=== PATIENT | female | born 1935 | race Caucasian/White ===

== ENCOUNTER 2020-11-06 16:56 | Inpatient (IN) | payer MEDICARE, BC ==
[~2020-11-06] VITALS: Ht 160 cm; Wt 57.8 kg
[2020-11-06 17:48] VITALS: BP 108/47
--- NOTE | 2020-11-06 18:54 | NUR ---
Rec'd patient via life net from [facility] to room 1127. She is A/O times one to person. She is calm, coorperative, and very pleasant. She was transferred from [facility] where she had been admitted from [place] to hospital for behaviors of aggression, combative behavior, and for a past HX of Dementia. She was admitted to [facility] for UIT and was treated with ABT. She is IDDM and per report from hospital she had a blood glucose level of 117 when she left the hospital. She also was reported as being occ incontient of bowel but more freq. of urine. She has a round blue bruise in her left AC and 3 red areas on her left hip. She denies pain or s/sx of UTI. She will be placed on droplet isolation and Covid testing will be completed. She does not demonstrate any s/sx of positive to Covid. She was oriented to room and hospital, fed a sandwich, and due to fall precautions an pressure alarm was placed on her bed.
[2020-11-06] MEDS ORDERED: VITAMIN B-121000 MCG PO (19:16)
[2020-11-06] MEDS ORDERED: DONEPEZIL HCL10 MG PO (19:16)
[2020-11-06] MEDS ORDERED: FERROUS SULFAT325 MG PO ×2 (19:17)
[2020-11-06] MEDS ORDERED: LEVOXYL75 MCG PO (19:18)
[2020-11-06] MEDS ORDERED: IPRATROPIUM BRO30 M1 NASAL (19:18)
[2020-11-06] MEDS ORDERED: MAG-OXIDE400 MG PO (19:19)
[2020-11-06] MEDS ORDERED: PRINIVIL20 MG PO (19:19)
[2020-11-06] MEDS ORDERED: NAMENDA10 MG PO (19:20)
[2020-11-06] MEDS ORDERED: ACETAMINOPHEN325 MG PO (19:20)
[2020-11-06] MEDS ORDERED: BAYER CHEWABLE81 MG PO (19:21)
[2020-11-06] MEDS ORDERED: LIPITOR80 MG PO (19:21)
[2020-11-06] MEDS ORDERED: AUGMENTIN 875-11 TAB PO (19:21)
[2020-11-06] MEDS ORDERED: CALTRATE+D3 PL1 EACH PO (19:22)
[2020-11-06 19:23] LABS: BILIRUBIN NEGATIVE (NEGATIVE); KETONE NEGATIVE (NEGATIVE); NITRITE NEGATIVE (NEGATIVE); UROBILINOGEN NORMAL mg/dL (< 2)
[2020-11-06] MEDS ORDERED: PLAVIX75 MG PO (19:23)
[2020-11-06] MEDS ORDERED: CENTRUM COMPLE1 EACH PO (19:23)
[2020-11-06] MEDS ORDERED: GLUCOPHAGE1000 MG PO (19:24)
[2020-11-06] MEDS ORDERED: GLUCOPHAGE500 MG PO (19:26)
[2020-11-06] MEDS ORDERED: ZOLOFT50 MG PO (19:26)
[2020-11-06] MEDS ORDERED: HEALTHYLAX17 GM PO (19:26)
--- NOTE | 2020-11-06 19:36 | NUR ---
RECEIVED IN HALLWAY, STANDING AT NURSES STATION. STATES SHE WANTS TO GO BACK WHERE SHE CAME FROM. EDUCATED HER THAT SHE IS HERE FOR AGGRESSION AND CONFUSION AND SHE WILL SEE THE DOCTOR IN THE MORNING. SHE STATED, OK, AND WENT BACK TO HER ROOM. NO SIGNS OF AGGRESSION AT THIS TIME. REDIRECT AND REORIENT NEEDED. IN ROOM WITH NURSE AT THIS TIME. CONTINUE PLAN OF CARE.
[2020-11-06 21:02] VITALS: BP 126/56
[2020-11-07 07:19] LABS: BASOPHILS 0.3 % (0-2); EOSINOPHILS 1.9 % (0-7); HEMATOCRIT 34.2 % (36.0-48.0); HEMOGLOBIN 10.9 g/dL (12-16); IMMATURE GRANULOCYTES 0.3 % (0-5); LYMPHOCYTE ABS# 1.63 10x3/uL (1.18-3.74); LYMPHOCYTES 27.6 % (15-50); MCH 29.6 pg (26.0-34.0); MCHC 31.9 g/dL (31.0-37.0); MCV 92.9 fL (80.0-100.0); MEAN PLATELET VOLUME 9.6 fL (7.4-10.4); MONOCYTES 9.5 % (2-11); NEUTROPHIL ABS# 3.56 10x3/uL (1.56-6.13); NEUTROPHILS 60.4 % (40-80); PLATELET COUNT 272 10x3/uL (130-400); RBC 3.68 10x6/uL (4.00-5.40); RDW 12.2 % (11.5-14.5); WBC 5.9 10x3/uL (4.8-10.8)
--- NOTE | 2020-11-07 07:57 | NUR ---
REC'D PT IN ROOM. PT UELLING, CUSSING, ATTEMPTING TO BITE STAFF, AND SPIT AT STAFF. UNABLE TO REDIRECT AT THIS TIME. HALDOL 2MG IM AND ATIVAN 0.5MG IM GIVEN PER PRN ORDER. WILL CPOC.
[2020-11-07 08:00] VITALS: BP 120/68
[2020-11-07 08:16] LABS: ALBUMIN 3.5 g/dL (3.4-5.0); ANION GAP 9.8 mmol/L (8-16); BILIRUBIN - TOTAL 0.21 mg/dL (0.2-1.3); CALCIUM 9.1 mg/dL (8.5-10.1); CARBON DIOXIDE 29.4 mmol/L (21.0-32.0); CHOL - HDL RATIO 2.8 ratio (2.3-4.1); CREATININE - SERUM 1.1 mg/dL (0.6-1.3); LDL-HDL RATIO 1.2 ratio (1.5-3.5); POTASSIUM - SERUM 4.2 mmol/L (3.5-5.1); PROTEIN - SERUM 6.9 g/dL (6.4-8.2); THYROID STIMULATING HORMONE 0.16 uIU/mL (0.36-3.74)
[2020-11-07 12:47] VITALS: Ht 160 cm; Wt 57.8 kg
--- NOTE | 2020-11-07 19:43 | NUR ---
RECEIVED IN HALLWAY. SITTING OUTSIDE OF NURSES STATION SOCIALIZING WITH PEERS. CALM AND COOPERATIVE WITH CARE AND ASSESSMENT. NO SIGNS OF AGGRESSION. NO STSTEMENTS OF SELF HARM VOICED. CONFUSED. REDIRECT AND REORIENT NEEDED. CONTINUES TO SOCAILIZE WITH PEERS. CONTINUE PLAN OF CARE.
--- NOTE | 2020-11-07 19:46 | NUR ---
RECEIVED IN BEDROOM. RESTING IN BED WITH EYES CLOSED. RESPONDS TO VOICE. STATES SHE IS VERY TIRED. CALM AND COOPERATIVE WITH CARE AND ASSESSMENT. NO SIGNS OF AGGRESSION. NO STATEMENTS OF SELF HARM VOICED. REDIRECT AND REORIENT NEEDED. CONTINUES TO REST QUIETLY IN BED. CONTINUE PLAN OF CARE.
[2020-11-07 22:19] VITALS: BP 121/51
[2020-11-08 08:00] VITALS: BP 140/54
--- NOTE | 2020-11-08 08:22 | NUR ---
Nutrition Follow-up: Poor PO intake yesterday. No ht or wt in chart. Diet: Diabetic PO intake: 0% x 3 yesterday Labs noted (11/07): Glu 137, POC Glu 203, A1C 6.3 Meds noted: Glucophage, Miralax, MagOx, vit B12, Oscal D -Encourage PO intake and honor food preferences within diet restrictions. -+Glucerna with meals. -Need ht & wt when possible. -RD will follow up within 3 days.
--- NOTE | 2020-11-08 08:30 | NUR ---
RECEIVED IN PATIENT ROOM. CALM AND COOPERATIVE WITH CARE AND ASSESSMENT. INSISTS SHE IS NOT A PATIENT AND IS HERE VISITING HER . RUDE TO STAFF. DEMANDING TO LEAVE. REDIRECT AND REORIENT NEEDED. EATING BREAKFAST AT THIS TIME. CONTINUE PLAN OF CARE.
--- NOTE | 2020-11-08 15:12 | PSY ---
PATIENT NAME:HARSH LOZOYA MEDICAL RECORD: [id number] : 34 LOCATION:[facility] ADMISSION DATE: 11/06/20 ACCOUNT: [id number] PSYCHIATRIC EVALUATION DATE OF EVALUATION: 11/07/20 IDENTIFYING DATA: The patient is 85 years old and she is referred to us by a local senior care. CHIEF COMPLAINT: Aggression. HISTORY OF PRESENT ILLNESS: The patient lives in a senior care. I am not sure how long she has been there. She is very confused and is not able to provide much of anything in the way of useful information. Apparently, she has been aggressive at the senior care. She has been angry and could easily become aggressive here if it were not for the fact that she is being constantly redirected. She is clearly impaired. She says she does not want to hurt herself or anyone else, but she is only oriented to person. PAST MEDICAL HISTORY: Significant for diabetes, hypertension, hypothyroidism and anemia. PAST PSYCHIATRIC HISTORY: Significant for dementing illness, although the details about the diagnosis and treatment up to this point are unknown. FAMILY HISTORY: Unknown. ALLERGIES: SULFA. MEDICATIONS: Include amoxicillin, Aricept, Namenda, metformin, Synthroid, Plavix, iron, lisinopril, aspirin, Zoloft and Glucophage. SOCIAL HISTORY: The patient is unmarried. I received a ambiguous answer when I asked if she had been or was never . She does not have any children, but apparently she has a nephew that she keeps referring to, although at this point I have not spoken to him or obtained information from him. She denies a history of sexual trauma or abuse, but again the patient is an extremely unreliable historian and there are limited sources of information today. MENTAL STATUS EXAMINATION: The patient is awake, alert and oriented to person, but not to place, time or situation. Her mood is angry. Her affect is constricted. Thought processes are circumstantial and her memory, concentration and abstraction abilities are severely impaired. She denies that she would seek to harm herself or others as well as psychotic symptoms. 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 AXIS II: None. AXIS III: Hypertension, diabetes, hypothyroidism. AXIS IV: Moderate stressors. AXIS V: Global assessment of functioning is 30. PLAN: At this time, the patient is admitted to the hospital secondary to aggressive behavior associated with a dementing illness. She will be treated with both mood stabilizing and memory enhancing medications as deemed appropriate. It is clear she is going to require 24-hour a day supervision and I presume the senior care is the least restrictive environment that can meet those needs. TRANSINT:[id number] Voice Confirmation ID: [id number] DOCUMENT ID: [id number] BRITTON MOHAMUD MD at 1512 CC: [id number] DICTATION DATE: 11/07/20 1627 CLINICAL DATA MANAGER: 11/07/20 1652 ADM IN [place] [id number] [place] [id number]
--- NOTE | 2020-11-08 19:21 | NUR ---
RECEIVED IN BEDROOM. RESTING WITH EYES CLOSED. RESPONDS TO VOICE. CALM AND COOPERATIVE WITH CARE AND ASSESSMENT. NO SIGNS OF AGGRESSION. REDIRECT AND REORIENT NEEDED. CONTINUES TO REST QUIETLY IN BED. CONTINUE PLAN OF CARE.
[2020-11-08 19:30] VITALS: BP 132/42
--- NOTE | 2020-11-09 08:45 | NUR ---
RECEIVED IN PATIENT ROOM. SITTING ON SIDE OF BED. CALM AND COOPERATIVE WITH CARE AND ASSESSMENT. NO AGGRESSION THIS MORNING. REDIRECT AND REORIENT NEEDED. EATING BREAKFAST AT THIS TIME. CONTINUE PLAN OF CARE.
[2020-11-09 09:19] VITALS: BP 134/66
--- NOTE | 2020-11-09 13:46 | PN ---
PATIENT:HARSH LOZOYA MEDICAL RECORD: [id number] LOCATION:[facility] ADMISSION DATE: 11/06/20 PROGRESS NOTE DATE OF SERVICE: 11/08/2020 SUBJECTIVE: The patient's case was discussed with staff. OBJECTIVE: The patient slept reasonably well last night, but did not eat well at all. She has very limited insight about her situation and is only oriented to person. ASSESSMENT: Dementia. PLAN: I am going to start the patient on Megace to assist with appetite stimulation. She will be monitored for clinical changes associated with its use. TRANSINT:[id number] Voice Confirmation ID: [id number] DOCUMENT ID: [id number] BRITTON MOHAMUD MD at 1346 CC: [id number] DICTATION DATE: 11/08/20 1551 WATERPROOF MATERIAL FOLDER: 11/08/20 2212 ADM IN [facility] [address] [place] [id number]
[2020-11-09 21:30] VITALS: BP 126/49
--- NOTE | 2020-11-09 22:17 | NUR ---
PT IS ALERT AND ORIENTED TO SELF ONLY. CALM AND COOPERATIVE WITH STAFF DURING ASSESSMENT. COMPLIANT WITH ALL MEDICATIONS. PATIENT IS STILL IN DROPLET ISOLATION UNTIL HER COVID RESULTS COMES BACK. USES A CALL MONDRAGON FOR ASSISTANCE. ABLE TO AMBULATE ON HER OWN. MONITOR FOR SAFETY.
[2020-11-10 08:00] VITALS: BP 158/54
[2020-11-10 08:12] LABS: RAPID PLASMA REAGIN Non Reactive (Non Reactive)
--- NOTE | 2020-11-10 10:58 | PN ---
PATIENT:HARSH LOZOYA MEDICAL RECORD: [id number] LOCATION:[facility] ADMISSION DATE: 11/06/20 PROGRESS NOTE DATE OF SERVICE: 11/09/2020 SUBJECTIVE: The patient's case was discussed with staff. She has no new complaint. OBJECTIVE: The patient is in good behavioral control. She has poor insight about her situation. ASSESSMENT: Dementia. PLAN: Current medicines have been reviewed and will be maintained. Long-term prognosis is guarded. TRANSINT:[id number] Voice Confirmation ID: [id number] DOCUMENT ID: [id number] BRITTON MOHAMUD MD at 1058 CC: [id number] DICTATION DATE: 11/09/20 1524 PARTS PICKER: 11/09/20 1528 ADM IN [place] [id number] [place] [address]
--- NOTE | 2020-11-10 11:48 | NUR ---
PT FOUND ON FLOOR IN ROOM. PT UNABLE TO STATE IF FELL OR NOT. ALARM WAS ON BUT DID NOT SOUND. VSS. FAMILY, DOCTOR, AND TRANSPORTATION DEPARTMENT HEAD NOTIFIED OF FALL. ALARM CHANGED OUT. NOTED BRUISE TO RIGHT WRIST. PT HAS FULL RANGE OF MOTION OF WRIST AND DOESN'T COMPLAIN OF PAIN. SMALL CUT NOTED TO RIGHT PENTECOSTALISM FROM HER GLASSES. FALL PRECAUTIONS IN PLACE.
[2020-11-10 11:51] VITALS: BP 130/51
--- NOTE | 2020-11-10 12:26 | NUR ---
PT IS ANXIOUS AND VERY CONFUSED. REDIRCTED NEEDED. NO AGGRESSION NOTED. MEDICATIONS GIVEN ORDERED. WALKER IN ROOM FOR AMBULATION. PT IS A PUI DUE TO AWAITING COVID TESTING RESULTS. DROPLET PRECAUTIONS IN PLACE. WILL CONTINUE TO MONITOR AND CONTINUE WITH PLAN OF CARE.
--- NOTE | 2020-11-10 15:33 | NUR ---
Rec'd this am lying supine in bed. She is A/O times one to person. She has a lot of confusion. She is very quiet and cooperative. She has not demonstrated any signs of aggressive behavior towards this murse. At approx. 1100 am she was found on the floor at the bedside. Injuries were minor treatable. Patient denied discomfort and refusal of pain meds. Attempted to call a [phone] in her file but there was no answer. I ask the patient if she knew any of her families # and she said "no".
[2020-11-10 20:07] VITALS: BP 137/42
--- NOTE | 2020-11-10 21:24 | NUR ---
PT IS ALERT AND ORIENTED TO SELF AND AT TIMES SITUATION. SHE CAN RECALL CERTAIN THINGS THAT OCCURRED TODAY. RECEIVED IN HER ROOM IN BED. CALM AND COOPERATIVE WITH STAFF. COMPLIANT WITH ALL MEDICATIONS. EASY TO REDIRECT. ENCOURAGED TO INFORM STAFF WHEN SHE NEEDS TO GET UP WE DONT WANT HER TO FALL. USES A WALKER TO ASSIST WITH AMBULATION. MONITOR FOR SAFETY.
--- NOTE | 2020-11-11 08:52 | NUR ---
Nutrition Reassessment/Follow-up: Overall poor PO intake. Ate 30-50% of meals yesterday. Noted Megace started 11/09. Ht & wt now available Diet: Diabetic, Glucerna TID PO intake: 42% x 9 meals Wt: 121#; Ht: 5'3"; BMI: 21.4 Last BM: 11/11 Labs noted: POC Glu 132 (11/10) Meds noted: Megace, Glucophage, MagOx, vit B12, Oscal D, Miralax Est needs: 5125-6531 kcal/day (25-30 kcal/kg) 45-55 g protein/day (0.8-1 g/kg) 6556-4567 mL H2O/day (1 mL/kcal) -Encourage PO intake and honor food preferences within diet restrictions. -Monitor wt. -RD will follow up within 3-5 days.
--- NOTE | 2020-11-11 15:28 | NUR ---
Rec'd patient this am lying in bed. She is A/O times 1 to person. She is a fall risk and is reeducated about fall risk precautions daily. Fall precautions in place. A bruise is located on RT wrist approx. 4 inches in lenght and a small cut approx 1 inch in lenght above her eye. She is compliant with her meds. Rec's a phone call at approx. 130 from a Peter FARRAR at [phone] phone # who says he has POA and he just found out that she is a patient here but he is ok if she needs to be here. He will make plans to talk with Víctor in Social and see what if anything he needs to do. He states he lives in [facility]. She is not willing or able to do much education at this date/time but staff will attempt to educate at every oppotunity .
--- NOTE | 2020-11-11 17:20 | NUR ---
MHT reports to nurse and Dr. Soriano present that patient had dark black stools today. Order rec'd for a CBC and stool occult blood.
[2020-11-11 18:46] LABS: BASOPHILS 0.2 % (0-2); EOSINOPHILS 2.6 % (0-7); HEMATOCRIT 30.8 % (36.0-48.0); HEMOGLOBIN 9.9 g/dL (12-16); IMMATURE GRANULOCYTES 0.2 % (0-5); LYMPHOCYTE ABS# 2.71 10x3/uL (1.18-3.74); LYMPHOCYTES 33.3 % (15-50); MCH 30.3 pg (26.0-34.0); MCHC 32.1 g/dL (31.0-37.0); MCV 94.2 fL (80.0-100.0); MEAN PLATELET VOLUME 9.2 fL (7.4-10.4); MONOCYTES 9.8 % (2-11); NEUTROPHIL ABS# 4.38 10x3/uL (1.56-6.13); NEUTROPHILS 53.9 % (40-80); PLATELET COUNT 227 10x3/uL (130-400); RBC 3.27 10x6/uL (4.00-5.40); RDW 12.5 % (11.5-14.5); WBC 8.1 10x3/uL (4.8-10.8)
[2020-11-11 20:00] VITALS: BP 140/45
--- NOTE | 2020-11-11 22:13 | NUR ---
BLOOD SUGAR 130
[2020-11-12 08:00] VITALS: BP 128/65
--- NOTE | 2020-11-12 10:18 | NUR ---
Spoke to lab personnel and asked this patient's send off is back and she said "The send off says she is negative." The patient is now off of PUI as she has been in her room since her admit last week. Let the patient know she is off of isolation and that she can come out of her room and speak to her nephew this evening. Provide prescribed meds. The patient is compliant with meds, she did however, decline her flonase. She has not shown any aggression today. Provide prescribed meds. Continue POC.
--- NOTE | 2020-11-12 15:43 | NUR ---
The patient awakened and she was very confused, she defacated on herself and she would not let the MHT clean her up until she spoke to the nurse. She wanted to know why she is here. Explained to her about having a UTI and being tested for COVID and that the UTI caused her to behave differently and that is why she is here. She got a little demading and said "Well, get me out of here now." Explained that I did not have the authority, only the DrTanner can release her. She said "Well, get him up here now." Explained to her that the DrTanner will be here tomorrow. She said "Well, good he is going to get an earfull. Continue to monitor her mood and behavior.
[2020-11-12 20:00] VITALS: BP 122/45
--- NOTE | 2020-11-12 22:44 | NUR ---
RECEIVED PATIENT IN HER ROOM, SHE IS PLEASANT. SHE TOOK HER MEDS WITHOUT ANY DIFFICULTY. SHE CAN MAKE HER NEEDS AND CONCERNS KNOWN. NO AGGRESSIVENESS NOTED. WILL FOLLOW POC
[2020-11-13 12:21] VITALS: BP 157/52
--- NOTE | 2020-11-13 17:14 | NUR ---
RECEIVED IN PATIENT ROOM. RESTING IN BED WITH EYES OPEN. CALM AND COOPERATIVE WITH CARE AND ASSESSMENT. NO AGGRESSIVE BEHAVIOR. REFUSED SHOWER TODAY. REDIRECT AND REORIENT NEEDED. WAITING FOR DINNER TRAY TO ARRIVE AT THIS TIME. CONTINUE PLAN OF CARE.
--- NOTE | 2020-11-13 20:09 | NUR ---
RECEIVED IN BEDROOM. RESTING IN BED WITH EYES OPEN. BRUISING TO RIGHT WRIST AND STATE PAIN WHEN TOUCHED. CALM AND COOPERATIVE WITH CARE AND ASSESSMENT. NO SIGNS OF AGGRESSION. REDIRECT AND REORIENT NEEDED. CONTINUES TO REST QUIETLY IN BED. CONTINUE PLAN OF CARE.
[2020-11-13 20:47] VITALS: BP 118/43
[2020-11-14 08:16] VITALS: BP 132/85
--- NOTE | 2020-11-14 10:01 | NUR ---
Nutrition Follow-up: Diet: Diabetic + Glucerna TID PO intake: ~42% average x last 9 meals Last BM: 11/14/20. Wt: 123.2# (11/13/20); Admit Wt: 121# (11/10/20) Meds noted: megace, metformin, miralax, magox, ferrrous sulfate, augmentin Labs noted: POC Glu 177(H) Recommend: -Continue current diet and oral nutrition supplement. -Encourage PO intake and continue to honor food preferences within diet restrictions. -Recommend continue appetite stimulant as feasible -RD will follow-up 11/16/20.
--- NOTE | 2020-11-14 15:12 | PN ---
PATIENT:HARSH LOZOYA MEDICAL RECORD: [id number] LOCATION:[facility] ADMISSION DATE: 11/06/20 PROGRESS NOTE DATE OF SERVICE: 11/10/2020 SUBJECTIVE: The patient's case was discussed with staff. She has no new complaint. OBJECTIVE: The patient is eating adequately and sleeping well. She has not been aggressive and is only oriented to person. ASSESSMENT: Dementia. PLAN: Her medications have been reviewed and will be maintained. TRANSINT:[id number] Voice Confirmation ID: [id number] DOCUMENT ID: [id number] BRITTON MOHAMUD MD at 1512 CC: [id number] DICTATION DATE: 11/10/20 1633 WOOD DOWEL MACHINE OPERATOR: 11/10/20 1654 ADM IN [place] [id number] [place] [address]
--- NOTE | 2020-11-14 17:25 | NUR ---
RECEIVED IN PATIENT ROOM. RESTING IN BED WITH EYES OPEN. CALM AND COOPERATIVE WITH CARE AND ASSESSMENT. NO AGGRESSIVE BEHAVIOR TODAY. REDIRECT AND REORIENT NEEDED. EATING DINNER AT THIS TIME. CONTINUE PLAN OF CARE.
--- NOTE | 2020-11-14 19:42 | NUR ---
RECEIVED IN BEDROOM. RESTING QUIETLY WITH EYES OPEN. CALM AND COOPERATIVE WITH CARE AND ASSESSMENT. NO SIGNS OF AGGRESSION. REDIRECT AND REORIENT NEEDED. CONTINUES TO REST QUIETLY IN BEDROOM. CONTINUE PLAN OF CARE.
[2020-11-14 20:17] VITALS: BP 112/42
[2020-11-15 08:00] VITALS: BP 134/44
[2020-11-15 08:15] LABS: HEMATOCRIT 31.8 % (36.0-48.0)
--- NOTE | 2020-11-15 14:08 | PN ---
PATIENT:HARSH LOZOYA MEDICAL RECORD: [id number] LOCATION:[facility] ADMISSION DATE: 11/06/20 PROGRESS NOTE DATE OF SERVICE: 11/14/2020 SUBJECTIVE: The patient's case was discussed with staff. She has no new complaint. OBJECTIVE: The patient is in good behavioral control. She has not been significantly disruptive, but she is only oriented to person. ASSESSMENT: Dementia. PLAN: Current medicines have been reviewed. I am going to continue her on current medicines for today. In addition to what she is taking now, she will be monitored for clinical changes associated with the antidepressant and hopefully she can be returned to the long-term soon. TRANSINT:[id number] Voice Confirmation ID: [id number] DOCUMENT ID: [id number] BRITTON MOHAMUD MD at 1408 CC: [id number] DICTATION DATE: 11/14/20 1556 LINE FISHER: 11/14/20 2306 ADM IN [place] [id number] [place] [id number]
--- NOTE | 2020-11-15 17:28 | NUR ---
RECEIVED PATIENT IN BED WITH EYES OPEN. AWAKE AND ALERT TO PERSON ONLY. CALM AND COOPERATIVE WITH ASSESSMENT AT THIS TIME. PRESCRIBED MEDICATIONS PROVIDED ORDERED.Med compliant. Redirect and reorient as needed. Fall precautions in place for safety. will continue plan of care.
[2020-11-15 20:00] VITALS: BP 129/48
--- NOTE | 2020-11-15 20:07 | NUR ---
RECEIVED IN BEDROOM. RESTING IN BED WITH EYES CLOSED. RESPONDS TO VOICE. CALM AND COOPERATIVE WITH CARE AND ASSESSEMENT. NO SIGNS OF AGGRESSION. REDIRECT AND REORIENT NEEDED. CONTINUES TO REST QUIETLY IN BED. CONTINUE PLAN OF CARE.
[2020-11-16 07:59] VITALS: BP 133/67
--- NOTE | 2020-11-16 08:07 | NUR ---
RENAN Ludwig CALLED THIS SHIFT ASKING TO SPEAK WITH 8465. HE STATED DOES THAT MAKE ANY SENSE?" NURSE STATED WHAT IS THE NAME OF THE PT? HE STATED ITS M-A-D-S-O-N NUMBER IS [id number] DOES THAT MAKE ANY SENSE?" NURSE STATED DO YOU HAVE A FIRST NAME FOR THE PT. HE STATED YEAH ITS M-A-D-S-O-N. I'M HER POA. NURSE ASKED IF THE PT NAME WAS MEHNAZ LOZOYA?" HE STATED YEAH HARSH LOZOYA NUMBER [id number]. NURSE STATED YES THATS THE CORRECT CODE NUMBER HOW CAN I HELP YOU?" YEAH I NEED TO SPEAK WITH NURSES STATION OR SOMETHING ABOUT HER LEAVING AND IF SHE COULD GO HOME OR WHATEVER? NURSE STATED HE WAS WELCOME TO SPEAK WITH Jr YANES ABOUT DISCHARGE PLANNING. HE STATED OKAY THAT SOUNDS GOOD. NURSE TRANSFERRED TO SOCIAL WORK OFFICE.
--- NOTE | 2020-11-16 08:27 | PN ---
PATIENT:HARSH LOZYOA MEDICAL RECORD: [id number] LOCATION:[facility] ADMISSION DATE: 11/06/20 PROGRESS NOTE DATE OF SERVICE: 11/15/2020 SUBJECTIVE: The patient's case was discussed with staff. She has no new complaint. OBJECTIVE: The patient is a very impaired cognitively. She is not eating well. ASSESSMENT: Dementia. PLAN: Current medicines have been reviewed. She has been started on Megace to assist with appetite stimulation. TRANSINT:[id number] Voice Confirmation ID: [id number] DOCUMENT ID: [id number] BRITTON MOHAMUD MD at 0827 CC: [id number] DICTATION DATE: 11/15/20 1534 STEERER: 11/15/20 2258 ADM IN [place] [id number] [place] [address]
--- NOTE | 2020-11-16 10:54 | NUR ---
Nutrition Re-Assessment: Diet: Diabetic + Glucerna TID PO intake: ~36% average x last 8 meals; does not appear to be drinking much of the Glucerna Last BM: 11/15/20 Wt: 123.2# (11/13/20); Admit Wt: 121# (11/10/20) Meds noted: megace, metformin, miralax, magox Labs noted: POC Glu 176(H) Estimated nutrition needs: 1400-1650kcal (25-30kcal/kg), 45-56gms protein (0.8-1gms/kg), 1400-1650mL fluid (or per MD) Nutrition diagnosis: Inadequate energy intake r/t presumably decreased appetite with advanced age and/or mental status AEB PO intake ~36% of meals. Goals: -PO intake =/>75% meals and snacks -Meet fluid needs -Stable weight DHS -Blood glucose to trend near WNL Recommendations: -Continue current diet and oral nutrition supplements. Will continue to honor food perferences within diet restrictions. -Continue encouraged PO Intake at meal times. -Recommend continue appetite stimulant as medically feasible. -RD will follow-up within 7 days.
--- NOTE | 2020-11-16 15:18 | NUR ---
Patient rec'd this am up in bed. She is A/O times 2 to person and situation. She is somewhat confused at time as she ask the same questions. She likes to stay in her room and does not like to be in a crowd or in around other people in a group or activities. She is encouraged to participate but often declines. She has not demonstrated any signs of aggression to staff or other patients. She has to be directed and redirected.
[2020-11-16 20:00] VITALS: BP 128/42
--- NOTE | 2020-11-17 01:53 | NUR ---
RECEIVED PATIETN IN HER ROOM, SHE IS CONFUSED, PLEASANT, COMPLIANT WITH MEDS. NO ADVERSE REACTION NOTED TO MEDS. SHE NEEDS HELP WITH SOME ADL'S. SHE CAN MAKE HER BASIC NEEDS KNOWN. WILL FOLLOW POC
--- NOTE | 2020-11-17 08:54 | PN ---
PATIENT:HARSH LOZOYA MEDICAL RECORD: [id number] LOCATION:[facility] ADMISSION DATE: 11/06/20 PROGRESS NOTE DATE OF SERVICE: 11/16/2020 SUBJECTIVE: The patient's case was discussed with staff. She has no new complaint. OBJECTIVE: The patient is oriented to person and place, but not to time or situation. She has not been aggressive. She did sleep well last night, but does not look over sedated today. She has not been combative today. ASSESSMENT: Dementia. PLAN: The patient's Zoloft is going to be reduced slightly. Her long-term prognosis is guarded. TRANSINT:[id number] Voice Confirmation ID: [id number] DOCUMENT ID: [id number] BRITTON MOHAMUD MD at 0854 CC: [id number] DICTATION DATE: 11/16/20 1704 TODDLER TEACHER: 11/17/20 0119 ADM IN [place] [id number] [place] [address]
[2020-11-17 10:14] VITALS: BP 131/35
--- NOTE | 2020-11-17 15:20 | NUR ---
PT SITTING IN CHAIR ATTENDING GROUP AT THIS TIME. PT IS CALM AND COOPERATIVE WITH STAFF. CONFUSION NOTED. REDIRECT AND REORIENT NEEDED. PT IS COMPLIANT WITH MEDS, VITALS AND ASSESSMENTS. PT REQUIRES ASSISTANCE ADLS. CALL MONDRAGON IN PLACE FOR ASSISTANCE. PT DOES MAKE SOME NEEDS KNOWN. NO BEHAVIORS NOTED. CHAIR ALARM IN PLACE AND ACTIVE.
--- NOTE | 2020-11-17 16:35 | NUR ---
Staff heard alarm in this patients room and found patient gettin back into bed after she states "I went to the bathroom" Re educated and request the patient to always call for help before getting out of bed and transferring. She stated "How do I do this?" I discussed with her to either use ding at bedside or yell for help and she said "ok". Patient continues to attempt self transfer from bed to wc or into bathroom without asking staff to assist her.
--- NOTE | 2020-11-17 17:43 | NUR ---
NURSE SPOKE WITH NEPHEW RENAN FARMER AT THIS TIME. PASSCODE GIVEN. HE STATED HE WANTED TO KNOW HOW HIS AUNT WAS DOING SINCE HE HAD NOT REC'D AN UPDATE FROM THE AUTO LEASING MANAGER AFTER LEAVING MESSAGES ON HER VOICEMAIL. NURSE STATED SHE APOLOGIZED AND WAS THERE ANYTHING SHE COULD DO TO HELP AT THIS TIME. HE STATED HE WANTED AN UPDATE ON HER PROGRESS AND HOW SHE WAS DOING. NURSE GAVE AN UPDATE AT THIS TIME. NURSE STATED SHE HAD NO BEHAVIORS, COMPLIANT WITH MEDS, PARTICIPATED IN GROUP SESSIONS DURING ACTIVITIES. HE STATED HE WAS SHOCKED WE HAD GROUP THERAPY AND HE WAS THRILLED THAT WE HAD THAT SINCE COVID HAD STOPPED ALL SOCIALIZATION. HE STATED HE WAS GLAD I COULD GIVE HIM SOME INFORMATION. HE WAS UPSET HE HAD NOT HEARD BACK FROM THE AUTO LEASING MANAGER. NURSE STATED DR. MOHAMUD STATED IF PT HAD A GOOD WEEKEND STILL THEN WE WOULD LOOK AT DISCHARGE ON SATURDAY. HE STATED HE WAS HAPPY TO HEAR THAT AND HE WOULD CALL HER AT 1750 TO ALLOW HER TO EAT DINNER. HE THANKED NURSE AT THIS TIME.
[2020-11-17 20:00] VITALS: BP 112/43
--- NOTE | 2020-11-18 03:00 | NUR ---
B) Patient is alert and oriented to person and place, calm and cooperative this shift, I) Administered scheduled medications as ordered, monitored for safety R) Medication compliant, quiet and keeps to herself, P) Continue plan of care.
--- NOTE | 2020-11-18 09:57 | NUR ---
Nutrition Follow-up: Diet: Diabetic + Glucerna TID PO intake: ~46% average x last 8 meals. She appears to be drinking 1-2 of her supplements each day (per nursing flowsheet) Last BM: 11/17/20. Wt: 123.2# (11/13/20); Admit Wt: 121# (11/10/20) Meds noted: megace, metformin, miralax, magox Labs noted: POC Glu 145(H) Recommend: -Continue current diet. Continue oral nutrition supplements TID. Continue encouraged PO intake at meal times. -Continue appetite stimulant as medically feasible. -RD will follow-up 11/23/20.
[2020-11-18 11:37] VITALS: BP 95/91
--- NOTE | 2020-11-18 13:05 | NUR ---
PT SITTING IN CHAIR AT THIS TIME. PT IS CONFUSED AND ALERT TO SELF ONLY. PT IS COMPLAINT WTIH MEDS, VITALS AND ASSESSMENTS. REDIRECT AND REORIENT NEEDED. PT CAN MAKE NEEDS KNOWN. PT REQUIRES ASSISTANCE WITH ADLS. NO AGRESSIVE BEHAVIOR NOTED. CHAIR ALARM IN PLACE AND ACTIVE. WILL CONT PLAN OF CARE.
[2020-11-18 20:00] VITALS: BP 117/45
--- NOTE | 2020-11-18 21:37 | NUR ---
PT IS ALERT AND ORIENTED TO SELF AND SITUATION. CALM AND COOPERATIVE WITH STAFF. PT IS SELF ISOLATING FROM PEERS. COMPLIANT WITH ALL MEDICATIONS. EASY TO REDIRECT. ABLE TO VOICE NEEDS AND WANTS. PT USES A WALKER TO ASSIST WITH AMBUALTION. MONITOR FOR SAFETY.
--- NOTE | 2020-11-19 07:39 | NUR ---
The patient is pleasant and calm at this time, she has not shown any aggression this am, she is sitting in a clara chair, will try to get her up and ambulating with a walker. Asked her how she is doing and she said "I don't know yet?" She denies any problems. Provide prescribed meds. She toilets and feeds herself. Monitor her mood and behaviors. Continue POC.
[2020-11-19 08:14] VITALS: BP 140/44
[2020-11-19 20:00] VITALS: BP 130/55
--- NOTE | 2020-11-19 22:59 | NUR ---
PT IS ALERT AND ORIENTED TO SELF ONLY. RECEIVED IN HER ROOM IN BED. SHE IS WITHDRAWN AND SELF ISOLATING. COMPLIANT WITH ALL MEDICATIONS. COOPERATIVE WITH STAFF. EASY TO REDIRECT. DENIES ANY NEEDS AT THIS TIME. MONITOR FOR SAFETY.
--- NOTE | 2020-11-20 07:59 | NUR ---
The patient is sitting in her room, staff have explained that she will need to get up out of bed and walk more so that she can regain her strength. She is not pleased to hear that as she wants to lay in the bed. She has not shown any aggression this am. Provide prescribed meds. The patient is compliant with meds. Continue POC.
[2020-11-20 09:00] VITALS: BP 160/57
--- NOTE | 2020-11-20 10:37 | NUR ---
The patient is up out of her bed, staff assisted her up to walk in the hallway, now she is sitting up in a clara chair. She is calm and she is conversing with some of the other patient's.
--- NOTE | 2020-11-20 19:29 | NUR ---
RECEIVED IN BEDROOM. RESTING IN BED WITH EYES CLOED. RESPONDS TO VOICE. CALM AND COOPERATIVE WITH CARE AND ASSESSMENT.NO SIGNS OF AGGRESSION. REDIRECT AND REORIENT. CONTINUES TO REST QUIETLY IN BED. CONTINUE PLAN OF CARE.
[2020-11-20 21:35] VITALS: BP 122/46
[2020-11-21 10:31] VITALS: BP 144/70
--- NOTE | 2020-11-21 13:41 | PN ---
PATIENT:HARSH LOZOYA MEDICAL RECORD: [id number] LOCATION:[facility] ADMISSION DATE: 11/06/20 PROGRESS NOTE DATE OF SERVICE: 11/17/2020 SUBJECTIVE: The patient's case was discussed with staff. She has no new complaint. OBJECTIVE: The patient is in good behavioral control with poor insight about her situation. She does tolerate her medicines well. ASSESSMENT: Dementia. PLAN: Current medicines have been reviewed and will be maintained. Her long-term prognosis is guarded. I anticipate she can be transitioned back to the [facility] soon. TRANSINT:[id number] Voice Confirmation ID: [id number] DOCUMENT ID: [id number] BRITTON MOHAMUD MD at 1341 CC: [id number] DICTATION DATE: 11/17/202014 CASKET ASSEMBLER: 11/17/[address] [facility] [address] [place] [address]
--- NOTE | 2020-11-21 17:45 | NUR ---
RECEIVED IN PATIENT ROOM. RESTING IN BED WITH EYES CLOSED. CALM AND COOPERATIVE WITH CARE AND ASSESSMENT. NO AGGRESSIVE BEHAVIOR. DIFFICULT TO REDIRECT AT TIMES. NEEDY AT TIMES. REDIRECT AND REORIENT NEEDED. EATING DINNER AT THIS TIME. CONTINUE PLAN OF CARE.
--- NOTE | 2020-11-21 22:01 | NUR ---
RECEIVED IN BEDROOM. RESTING IN BED WITH EYES CLOSED. RESPONDS TO VOICE. CALM AND COOPERATIVE WITH CARE AND ASSESSMENT. NO SIGNS OF AGGRESSION. REDIRECT AND REORIENT NEEDED. RESTING IN BED WITH EYES CLOSED AT THIS TIME. CONTINUE PLAN OF CARE.
[2020-11-21 22:55] VITALS: BP 128/40
[2020-11-22 08:00] VITALS: BP 150/47
--- NOTE | 2020-11-22 13:17 | PN ---
PATIENT:HARSH LOZOYA MEDICAL RECORD: [id number] LOCATION:[facility] ADMISSION DATE: 11/06/20 PROGRESS NOTE DATE OF SERVICE: 11/21/2020 SUBJECTIVE: The patient's case was discussed with staff. She has no new complaint. OBJECTIVE: The patient is eating and sleeping well. She has not been significantly disruptive today. She is only oriented to person and has almost no insight about her situation. ASSESSMENT: Dementia. PLAN: Current medicines have been reviewed. I would anticipate that she could be transitioned back to the [facility] soon if this level of improvement continues. TRANSINT:[id number] Voice Confirmation ID: [id number] DOCUMENT ID: [id number] BRITTON MOHAMUD MD at 1317 CC: [id number] DICTATION DATE: 11/21/20 1616 MANAGEMENT RECRUITER: 11/21/20 1739 ADM IN [place] [id number] [place] [address]
--- NOTE | 2020-11-22 13:23 | NUR ---
LAKIA WAS CONTACTED BY RENAN TO DISCUSS DISCHARGE PLANNING. HE STATED HE COULDN'T GET A HOLD OF COMMERCIAL PROJECT MANAGER. LAKIA STATED SHE WAS OUT WITH THE [facility]. HE DID SAY HE GOT UPDATES FROM THE UNIT FREQUENTLY. LAKIA STATED PT WILL BE DISCHARGING BACK TO [facility] AND IT IS LOOKING TO BE GEARING TOWARDS THE FIRST OF THE WEEK. LAKIA GAVE RENAN A DIRECT NUMBER TO [facility] OFFICE AND STATED IF HE DOESN'T HEAR FROM [facility] IN 24 HOURS PLEASE CONTACT THE UNIT TO ALERT. RENAN VOICED UNDERSTANDING AND APPRECIATION.
--- NOTE | 2020-11-22 17:57 | NUR ---
RECEIVED IN PATIENT ROOM. RESTING IN BED WITH EYES CLOSED. CALM AND COOPERATIVE WITH CARE AND ASSESSMENT. NO AGGRESSIVE BEHAVIOR. REDIRECT AND REORIENT NEEDED. EATING DINNER AT THIS TIME. CONTINUE PLAN OF CARE.
[2020-11-22 20:00] VITALS: BP 129/44
--- NOTE | 2020-11-22 21:04 | NUR ---
RECEIVED IN BEDROOM. RESTING IN BED WITH EYES CLOSED. RESPONDS TO VOICE. CALM AND COOPERATIVE WITH CARE AND ASSESSMENT. NO SIGNS OF AGGRESSION. REDIRECT AND REORIENT NEEDED. CONTINUES TO REST QUIETLY IN BED. CONTINUE PLAN OF CARE.
--- NOTE | 2020-11-23 08:34 | PN ---
PATIENT:HARSH LOZOYA MEDICAL RECORD: [id number] LOCATION:[facility] ADMISSION DATE: 11/06/20 PROGRESS NOTE DATE OF SERVICE: 11/22/2020 SUBJECTIVE: The patient's case was discussed with staff. She has no new complaint. OBJECTIVE: The patient is in good behavioral control with limited insight about her situation. She does tolerate her medications reasonably well. ASSESSMENT: Dementia. PLAN: The patient has shown significant improvement and can likely be transitioned out of the hospital soon. TRANSINT:[id number] Voice Confirmation ID: [id number] DOCUMENT ID: [id number] BRITTON MOHAMUD MD at 0834 CC: [id number] DICTATION DATE: 11/22/20 1628 ALGEBRAIST: 11/22/20 2314 ADM IN [place] [id number] [place] [address]
--- NOTE | 2020-11-23 10:00 | NUR ---
wire web worker referred patient back to [facility] in [place]. Her nephew Peter wanted her to return back to where she came from. [facility] will come assess tomorrow for return placement. wire web worker will alert nephew when decision is made.
--- NOTE | 2020-11-23 12:30 | NUR ---
RECEIVED IN PATIENT ROOM. RESTING IN BED WITH EYES OPEN. CALM AND COOPERATIVE WITH CARE AND ASSESSMENT. NO AGGRESSIVE BEHAVIOR. REDIRECT AND REORIENT NEEDED. EATING LUNCH AT THIS TIME. CONTINUE PLAN OF CARE.
--- NOTE | 2020-11-23 14:28 | NUR ---
Nutrition Re-Assessment Diet: Diabetic + Glucerna TID PO intake: ~91% average x last 9 meals Last BM: 11/21/20 Wt: 128# (11/20/20); Admit Wt: 121# (11/10/20) Meds noted: megace, metformin, miralax, magox, ferrous sulfate Labs noted: POC Glu 250(H) Estimated nutrition needs remain unchanged at this time. Nutrition diagnosis: Altered nutrition related lab values r/t DM dx AEB elevated blood glucose. Progressing towards meeting nutrition goals at this time. Recommendations/Interventions: -Recommend continue CHO consistent diet. DM meds/insulin to help bring blood glucose down or per MD. -RD will continue to monitor PO Intake and wt trend. -RD will follow-up within 7 days.
[2020-11-23 20:00] VITALS: BP 116/59
--- NOTE | 2020-11-23 23:11 | NUR ---
PT IS ALERT AND ORIENTED TO SELF AND PLACE. SHE IS RECEIVED IN HER ROOM IN BED. CALM AND COOPERATIVE WITH STAFF. ABLE TO VOICE NEEDS AND WANTS. COMPLIANT WITH ALL MEDICATIONS. USING A WHEELCHAIR TO ASSIST WITH AMBULATION. MONITOR FOR SAFETY.
[2020-11-24 09:37] VITALS: BP 137/42
--- NOTE | 2020-11-24 11:59 | PN ---
PATIENT:HARSH LOZOYA MEDICAL RECORD: [id number] LOCATION:[facility] ADMISSION DATE: 11/06/20 PROGRESS NOTE DATE OF SERVICE: 11/23/2020 SUBJECTIVE: The patient's case was discussed with staff. She has no new complaint. OBJECTIVE: The patient is in good behavioral control and has poor insight about her condition. She has not been aggressive today. She is oriented to person and place and she slept well and ate well yesterday. ASSESSMENT: Dementia. PLAN: Current medicines have been reviewed and will be maintained. Her long-term prognosis is guarded. Brief supportive and educational interventions were made. TRANSINT:[id number] Voice Confirmation ID: [id number] DOCUMENT ID: [id number] BRITTON MOHAMUD MD at 1159 CC: [id number] DICTATION DATE: 11/23/20 1652 REGISTERED RESPIRATORY THERAPIST: 11/23/20 2323 ADM IN [place] [id number] [place] [id number]
[2020-11-24 14:29] LABS: SARS-CoV-2 ANTIGEN NEGATIVE- SARS-COV-2 (NEGATIVE)
--- NOTE | 2020-11-24 17:53 | NUR ---
PT SITTING CHAIR AT THIS TIME. PT IS ALERT TO SELF ONLY. CONFUSION NOTED. COMPLIANT WITH MEDS, VITALS AND ASSESSMENTS. NO BEHAVIORS NOTED. PT FOLLOW INSTRUCTIONS. REDIRECT AND REORIENT. NO REDNESS NOTED. CHAIR ALARM IN PLACE AND ACTIVE. WILL CONT PLAN OF CARE.
[2020-11-24] MEDS ORDERED: MEGACE40 MG PO (18:37)
[2020-11-24] MEDS ORDERED: ZOLOFT50 MG PO (18:37)
[2020-11-24] MEDS ORDERED: NYSTATIN1 PWD TOPICAL (18:38)
[2020-11-24 20:00] VITALS: BP 125/43
--- NOTE | 2020-11-24 22:12 | NUR ---
PT IS ALERT AND ORIENTED TO SELF AND PLACE ONLY. RECEIVED IN HER ROOM IN BED RESTING CALMLY. COOPERATIVE WITH STAFF. USES A WALKER TO ASSIST WITH AMBULATION. COMPLIANT WITH ALL MEDICATIONS. EASY TO REDIRECT.
--- NOTE | 2020-11-25 09:20 | NUR ---
PT SITTING IN W/C AT THIS TIME. PT IS CALM AND COOPERATIVE WITH STAFF AT THIS TIME. PT IS CALM AND COOPERATIVE WITH STAFF AND PEERS. PT REQUIRES SOME ASSISTANCE WITH ADLS. CAN MAKE SOME NEEDS KNOWN. ALERT TO SELF ONLY. REDIRECT AND REORIENT NEEDED. COMPLIANT WITH MEDS, VITALS AND ASSESSMENTS. WILL CONT PLAN OF CARE.
--- NOTE | 2020-11-25 10:20 | NUR ---
PT DISCHARGED TO [facility] THIS AM. NURSE CALLED REPORT INTO HANK AT [facility]. ALL PT BELONGINGS SENT WITH PT AT THIS TIME INCLUDING BELONGINGS IN ER LOCKBOX. NURSE GAVE AN UPDATE ON HER BOWEL MOVEMENTS, MEDICATION INTAKE, CALM AND COOPERATIVE, SLEEP TIME. PAPERWORK FAXED AND PAPER COPY SENT WITH PT. NURSE NOTIFIED RENAN ANTONIO OF PT DISCHARGED WELL. HE THANKED NURSE. PT TOLERATED D/C WELL.
[2020-11-25 14:13] VITALS: BP 126/50
--- NOTE | 2020-11-28 13:27 | PN ---
PATIENT:HARSH LOZOYA MEDICAL RECORD: [id number] LOCATION:[facility] ADMISSION DATE: 11/06/20 PROGRESS NOTE DATE OF SERVICE: 11/24/2020 SUBJECTIVE: The patient's case was discussed with staff. She has no new complaint. OBJECTIVE: The patient is oriented to person only, but she is eating and sleeping well and has had no aggression for several days. ASSESSMENT: Dementia. PLAN: This patient can be transitioned out of the hospital and to the [facility] tomorrow. She has been accepted by that [facility]. TRANSINT:[id number] Voice Confirmation ID: [id number] DOCUMENT ID: [id number] BRITTON MOHAMUD MD at 1327 CC: [id number] DICTATION DATE: 11/24/20 1835 HYDRAULIC GOVERNOR ASSEMBLER: 11/24/20 2149 DIS IN 11/25/20 [facility] [address] [place] [address]
== END 2020-11-25 10:15 | DRG 57 ==
LOC: D.PSYCH 16:56
PROVIDERS: Family Medicine; ADMIT Psychiatry & Neurology Psychiatry; ATTEND Psychiatry & Neurology Psychiatry
DX: G30.9 Alzheimer's disease, unspecified (principal); F33.9 Major depressive disorder, recurrent, unspecified; N39.0 Urinary tract infection, site not specified; F02.80 Dementia in other diseases classified elsewhere, unspecified severity, without behavioral disturbance, psychotic disturbance, mood disturbance, and anxiety; I69.919 Unspecified symptoms and signs involving cognitive functions following unspecified cerebrovascular disease; I10 Essential (primary) hypertension; E11.9 Type 2 diabetes mellitus without complications; I25.10 Atherosclerotic heart disease of native coronary artery without angina pectoris; F01.50 Vascular dementia, unspecified severity, without behavioral disturbance, psychotic disturbance, mood disturbance, and anxiety; E78.5 Hyperlipidemia, unspecified; E03.9 Hypothyroidism, unspecified; F41.9 Anxiety disorder, unspecified; R26.9 Unspecified abnormalities of gait and mobility; K59.01 Slow transit constipation; D50.9 Iron deficiency anemia, unspecified; E53.8 Deficiency of other specified B group vitamins; E55.9 Vitamin D deficiency, unspecified; R63.0 Anorexia